=== PATIENT | male | born 1950 | race Caucasian/White ===

== ENCOUNTER 2019-05-21 11:31 | Observation (INO) | payer OTHER ==
[~2019-05-21] VITALS: Ht 177.8 cm; Wt 131.7 kg
[2019-05-21 12:04] VITALS: BP 156/95
[2019-05-21] MEDS ORDERED: HYDROCHLOROTH12.5 M2 PO (15:07)
[2019-05-21] MEDS ORDERED: LEVOTHYROXIN0.175 MG PO (15:07)
[2019-05-21] MEDS ORDERED: MYRBETRIQ50 MG PO (15:08)
[2019-05-21 21:28] VITALS: BP 141/92
[2019-05-21 21:33] VITALS: Ht 177.8 cm; Wt 131.7 kg
[2019-05-21 22:00] VITALS: BP 153/100
[2019-05-21 23:00] VITALS: BP 146/82
[2019-05-22 05:04] VITALS: BP 117/64
[2019-05-22 06:23] LABS: BASOPHIL % 0.6 % (0-2); PLATELET COUNT 222 x10^3mcL (130-400)
[2019-05-22 07:01] LABS: RED CELL DISTRIBUTION WIDTH 14.8 % (11.5-14.5)
[2019-05-22 07:07] LABS: CALCIUM 8.4 mg/dL (8.5-10.1); CARBON DIOXIDE 32.9 mmol/L (21-32); CHLORIDE SERUM 106 mmol/L (98-107); CREATININE SERUM 0.9 mg/dL (0.7-1.3); GFR1 > 60 mL/min; GLUCOSE SERUM 124 mg/dL (74-106); POTASSIUM SERUM 4.8 mmol/L (3.5-5.1); SODIUM SERUM 142 mmol/L (136-145)
[2019-05-22 09:22] VITALS: BP 121/53
[2019-05-22 16:44] VITALS: BP 134/72
== END 2019-05-22 18:09 | disposition home or self-care (01) | DRG 470 ==
LOC: DS 11:31 → EDSTATUS 13:30 → MU 18:29
PROVIDERS: ADMIT Orthopaedic Surgery
PROC: 0SRD0J9 Replacement of Left Knee Joint with Synthetic Substitute, Cemented, Open Approach (ICD-10-PCS; principal; 2019-05-21 13:30)
DX: M17.12 Unilateral primary osteoarthritis, left knee (principal); Z68.41 Body mass index [BMI] 40.0-44.9, adult; I10 Essential (primary) hypertension; E03.9 Hypothyroidism, unspecified; E66.9 Obesity, unspecified; Z96.643 Presence of artificial hip joint, bilateral; Z96.651 Presence of right artificial knee joint
CPT/HCPCS: 97116-GP; C1713; C1776; G0378; J0690; J1170; J1885; J2175; J2270; J2274; J2405; J2704; J3490; J7030; J7120; Q0092

== ENCOUNTER 2019-06-11 19:13 | Inpatient (IN) | payer OTHER ==
[~2019-06-11] VITALS: Ht 175.3 cm; Wt 127.0 kg
[~2019-06-11 19:13] MED LIST: HYDROCHLOROTH12.5 M2 PO; LEVOTHYROXIN0.175 MG PO; MYRBETRIQ50 MG PO
[2019-06-11 19:19] VITALS: Ht 175.3 cm; Wt 127.0 kg
--- NOTE | 2019-06-11 19:24 | NUR ---
PT BIBA TO ED WITH C/C OF ABDOMINAL PAIN BEGINNING APPROX 1 HOUR AGO. PER PT, THE PAIN BEGAN WITH A "SUDDEN ONSET" TO RLQ. PT REPORTS HE WAS WATCHING TV AND FELT SEVERE PAIN TO HIS ABDOMEN, REPORTED FEELING NAUSEOUS ON THE WAY TO THE ED. PT FEELS PAIN WITH PALPATION. DENIES ANY EPISODES OF VOMITTING. PT IS AWAKE, AAOX4, RESP E/U. NO OBVIOUS INJURY OR ABNORMALITY NOTED TO ABDOMEN. NAD NOTED. AWAITING MSE.
--- NOTE | 2019-06-11 20:42 | NUR ---
PT MEDICATED PER MD ORDER. PT VERBALIZED UNDERSTANDING OF MEDICATION PRIOR TO ADMINISTRATION.
[2019-06-11 20:51] LABS: CALCIUM 8.7 mg/dL (8.5-10.1); CARBON DIOXIDE 31.3 mmol/L (21-32); CHLORIDE SERUM 106 mmol/L (98-107); CREATININE SERUM 0.9 mg/dL (0.7-1.3); GFR1 > 60 mL/min; GLUCOSE SERUM 135 mg/dL (74-106); POTASSIUM SERUM 3.9 mmol/L (3.5-5.1); SODIUM SERUM 142 mmol/L (136-145)
[2019-06-11 20:52] LABS: BASOPHIL % 0.6 % (0-2); PLATELET COUNT 328 x10^3mcL (130-400); RED CELL DISTRIBUTION WIDTH 13.6 % (11.5-14.5)
[2019-06-11 20:55] LABS: ALBUMIN 3.5 g/dL (3.4-5.0); ALKALINE PHOSPHATASE 144 U/L (46-116); ALT/SGPT 26 U/L (16-63); AMYLASE 209 U/L (25-115); AST/SGOT 17 U/L (15-37); BILIRUBIN TOTAL 0.3 mg/dL (0.20-1.00); LIPASE 103 IU/L (73-393); TOTAL PROTEIN, SERUM 7.1 g/dL (6.4-8.2)
--- NOTE | 2019-06-11 21:15 | NUR ---
PT REPORTING PAIN IS "COMING BACK" RATES 5/10 AT THIS TIME. MADE AWARE.
--- NOTE | 2019-06-11 21:32 | NUR ---
PT IS AWAKE, AAOX4, RESP E/U, NAD NOTED. DR. HOWELL AT BEDSIDE WITH PT.
--- NOTE | 2019-06-11 22:27 | NUR ---
PT LAYING IN GURNEY, AWAKE, AAOX4, RESP E/U. SPEAKING IN FULL CLEAR SENTENCES, AT BEDSIDE. CALL LIGHT IN REACH.
--- NOTE | 2019-06-12 01:10 | NUR ---
LEFT HAND IV NO LONGER FLUSHING, IV D/C'D. ANGIOCATH INTACT.
--- NOTE | 2019-06-12 01:22 | NUR ---
PT MEDICATED PER ORDER, PT VERBALIZED UNDERSTANDING OF MEDICATION PRIOR TO ADMINISTRATION. PT IS AWAKE AND ALERT, SITTING COMFORTABLY IN GURNEY, RESP E/U, AT BEDSIDE, CALL LIGHT IN REACH. NAD NOTED.
--- NOTE | 2019-06-12 02:12 | NUR ---
CALLED SHARMILA AT LAB, AWAITING BLOOD CULTURE DRAW ON PT TO START ANTIBIOTIC
--- NOTE | 2019-06-12 03:39 | NUR ---
JACKIE EMT AT BEDSIDE ASSISTING PT TO USE URINAL
--- NOTE | 2019-06-12 04:33 | NUR ---
PT TO RADIOLOGY VIA WHEELCHAIR
--- NOTE | 2019-06-12 04:51 | NUR ---
PT BACK FROM CT VIA WHEELCHAIR. PT WHEELED TO RESTROOM. PT AMBULATED FROM RESTROOM TO BED WITH STEADY GAIT AND NO ASSISTANCE. PT REQUESTING TO STAY SITTING AT BEDSIDE AT THIS TIME. CALL LIGHT WITHIN REACH. CM AND [address] PT A&0X4, SPEAKING FULL CLEAR SENTENCES. BREATHING EVEN AND UNLABORED. WILL CONTINUE TO MONITOR
--- NOTE | 2019-06-12 05:27 | NUR ---
PT LAYING ON GURNEY IN NAD. PT SLEEPING BUT EASILY AROUSABLE. BREATHING EVEN AND UNLABORED. LIGHTS TURNED OFF FOR COMFORT. WILL CONTINUE TO MONITOR.
--- NOTE | 2019-06-12 06:29 | NUR ---
HEAD OF BED LOWERED FOR PT COMFORT. PT MEDICATED PER MD ORDERS. PT A&0X4, SPEAKING FULL CLEAR SENTENCES. CM AND [address] BREATHING EVEN AND UNLABORED. WILL CONTINUE TO MONITOR.
--- NOTE | 2019-06-12 07:07 | NUR ---
ATTEMPTED TO CALL REPORT TO DEVIN AT EXT [id number], NO ANSWER.
--- NOTE | 2019-06-12 07:17 | NUR ---
ATTEMPTED TO CALL REPORT TO DEVIN AT EXT [id number], PER DEVIN SHE WASNT AWARE SHE WAS RECEIVING PT AND INFORMED ME THAT SHE WOULD CALL BACK.
--- NOTE | 2019-06-12 07:43 | NUR ---
PT ADMITTED, REPORT GIVEN TO RACHAEL.
--- NOTE | 2019-06-12 08:05 | NUR ---
RECEIVED PT FROM ED VIA WHEELCHAIR. PT AWAKE, ALERT, ORIENTED X4. REPORTS MILD PAIN TO RLQ ABD. DULL, ACHING, RATES 3/10. CONTINUOUS EVEN WHILE RELAXING, WORSE WITH MOVEMENT/ACTIVITY. DENIES N/V AT THIS TIME. DENIES SOB ON ROOM AIR. DENIES CHEST PAIN. MEDSURG. VS STABLE: BP 135/72 (93), HR 72, O2 SAT 100% ON ROOM AIR. RR EVEN/UNLABORED. RR 14. TEMP 97.5F. IV WNL TO RW, PATENT AND FLUSHES WELL. NO REDNESS, NO SWELLING, NO INFILTRATION. PT REPORTS SURGERY ON OCT , LEFT KNEE SURGERY AT [facility] [place], PT HAS LARGE SURGICAL WOUND, SEE MAR FOR PICTURES. NO DRAINAGE. CLOSED WITH SEMITRANSPARENT DRESSING. NO DRAINAGE NOTED. CDI. SURGICAL WOUND MEASURES: LENGTH-18.5CM X WIDTH 0.2CM. NO N/V. NO CHILLS. NO FEVER. CALM/COOPERATIVE. ORIENTED TO SURROUNDINGS. INSTRUCTED TO USE CALL LIGHT TO CALL FOR ASSISTANCE PRN. VERBALIZED UNDERSTANDING. BED IN LOW POSITION. CALL LIGHT WITHIN REACH. WILL CONT. TO MONITOR.
[2019-06-12 09:46] VITALS: BP 135/72
--- NOTE | 2019-06-12 12:29 | NUR ---
PT RESTING IN BED WITH BOTH EYES CLOSED. NO S/S OF ACUTE DISTRESS. NO S/S OF PAIN. NO N/V. MED SURG. NO SOB ON ROOM AIR. RR EVEN/UNLABORED. CHEST EXPANSION SYMMETRICAL. IV WNL TO RW, PATENT AND FLUSHES WELL. IVF FLOWING. BED IN LOW POSITION. CALL LIGHT WITHIN REACH. WILL CONT. TO MONITOR.
--- NOTE | 2019-06-12 14:38 | NUR ---
PT C/O PAIN TO RLQ ABD. RATES 7/10. CONTINUOUS. WORSE WITH MOVEMENT. VS STABLE. O2 SAT 100% ON ROOM AIR. AA/OX4. GIVEN IV PAIN MED, SEE MAR. NO S/S OF ACUTE DISTRESS. NO SOB. NO CHEST PAIN. NO N/V. CALM/COOPERATIVE. IV WNL TO RW, IVF FLOWING. SITE WNL. NPO EXCEPT MEDS. BED IN LOW POSITION. CALL LIGHT WITHIN REACH. WILL CONT. TO MONITOR.
[2019-06-12 17:43] VITALS: BP 140/75
--- NOTE | 2019-06-12 18:43 | NUR ---
PT LAYING IN BED. AA/OX4. REPORTS MILD RLQ ABD. PAIN. DULL ACHING. CONTINUOUS. WORSE WITH PALPATION/MOVEMENT/ACTIVITY. RATES 4/10. REPORTS TOLERABLE AT THIS TIME. DECLINED TO PAIN MEDICATION. NO N/V. NO CHILLS. NO FEVER. VS STABLE. IV WNL TO RW, IVF FLOWING. CALM/COOPERATIVE. NPO. BED IN LOW POSITION. CALL LIGHT WITHIN REACH. WILL ENDORSE TO ONCOMING SHIFT.
[2019-06-12 19:31] VITALS: BP 116/60
--- NOTE | 2019-06-12 20:24 | NUR ---
PATIENT RECEIVED AWAKE, ALERT, ORIENTED X4 IN BED. RESPIRATION EVEN AND UNLABORED, ON ROOM AIR. ONGOING 0.9% NS AT 80 CC/HR INFUSING WELL AT THE RIGHT WRIST. +1 EDEMA TO BLE. LBM 06/11/19. VOIDING FREELY, USES URINAL. LIMITED MOVEMENT TO BLE. SURGICAL INCISION TO LEFT KNEE COVERED WITH SEMI TRANSPARENT DRESSING. WILL CONTINUE TO MONITOR.
--- NOTE | 2019-06-12 20:46 | NUR ---
PATIENT COMPLAINED OF RLQ ABDOMINAL PAIN, PAIN SCALE 5/10. MEDICATED WITH MORPHINE SULFATE 6 MG IVP ORDERED. WILL CONTINUE TO MONITOR.
--- NOTE | 2019-06-13 00:53 | NUR ---
PATIENT COMPLAINED OF HEADACHE, PAIN SCALE 10/10. MEDICATED WITH TYLENOL 650 MG PO ORDERED. WILL CONTINUE TO MONITOR.
[2019-06-13 04:31] VITALS: BP 118/64
--- NOTE | 2019-06-13 04:52 | NUR ---
PATIENT COMPLAINED OF NAUSEA. MEDICATED WITH ZOFRAN 4 MG IVP ORDERED. WILL CONTINUE TO MONITOR.
--- NOTE | 2019-06-13 06:07 | NUR ---
PATIENT RESTING IN BED. RESPIRATION EVEN AND UNLABORED, ON ROOM AIR. RE-INSERTED A NEW IV SITE ON THE LEFT HAND. PLACED BED IN THE LOWEST POSITION.SAFETY OBSERVED. PLACED CALL LIGHT WITHIN REACH AT ALL TIMES.
[2019-06-13 06:11] LABS: BASOPHIL % 0.4 % (0-2); PLATELET COUNT 296 x10^3mcL (130-400); RED CELL DISTRIBUTION WIDTH 13.7 % (11.5-14.5)
--- NOTE | 2019-06-13 06:18 | NUR ---
PATIENT COMPLAINED OF HEADACHE, PAIN SCALE 8/10. MEDICATED WITH TYLENOL 650 MG PO ORDERED. WILL CONTINUE TO MONITOR.
[2019-06-13 06:29] LABS: ALKALINE PHOSPHATASE 126 U/L (46-116); ALT/SGPT 26 U/L (16-63); AST/SGOT 22 U/L (15-37); BILIRUBIN TOTAL 0.58 mg/dL (0.20-1.00); CALCIUM 8.8 mg/dL (8.5-10.1); CHLORIDE SERUM 105 mmol/L (98-107); CREATININE SERUM 0.7 mg/dL (0.7-1.3); GFR1 > 60 mL/min; GLUCOSE SERUM 126 mg/dL (74-106); MAGNESIUM 2.2 mg/dL (1.8-2.4); POTASSIUM SERUM 3.8 mmol/L (3.5-5.1); SODIUM SERUM 141 mmol/L (136-145)
[2019-06-13 06:36] LABS: ALBUMIN 3.3 g/dL (3.4-5.0)
--- NOTE | 2019-06-13 07:39 | NUR ---
RECEIVED PT LYING IN BED A/A. BREATHING EQUAL/ UNLABORED ON RA. IVF RUNNING AT 80 ML/HR. NO REDNESS/ SWELLING TO IV SITE. PT C/O LUGO AND R. ABD PAIN. STATES HE DOES NOT WANT MEDS AT THIS TIME. RELAXATION IMPLEMENTED. BED IN LOW POSITION/ CALL LIGHT IN REACH, SAFETY PRECAUTIONS IN PLACE. WILL CONTINUE TO MONITOR
[2019-06-13 08:12] VITALS: BP 113/68
--- NOTE | 2019-06-13 12:00 | NUR ---
PT LYING IN BED A/A. BREATHING EQUAL/ UNLABORED ON RA. IVF RUNNING AT 80 ML/HR. NO REDNESS/ SWELLING TO IV SITE. NO ACUTE PAIN/ DISTRESS. BED IN LOW POSITION, CALL LIGHT IN REACH, SAFETY PRECAUTIONS IN PLACE. WILL CONTINUE TO MONITOR
[2019-06-13 16:57] VITALS: BP 93/76
--- NOTE | 2019-06-13 18:40 | NUR ---
PT LYING IN BED WITH EYES CLOSED, AROUSABLE TO VOICE. BREATHING EQUAL/ UNLABORED ON RA. IVF RUNNING AT 80 ML/HR. NO REDNESS/ SWELLING TO IV SITE. PT HAS SEMI TRANSPARENT DRESSING TO L. KNEE, CDI. NO ACUTE DISTRESS/ PAIN NOTED AT THIS TIME. BED IN LOW POSITION, CALL LIGHT IN REACH, SAFETY PRECAUTIONS IN PLACE. WILL ENDORSE TO ON COMING NURSE
--- NOTE | 2019-06-13 20:00 | NUR ---
RECEIVED PT IN BED, A/O X4. ABLE TO VERBALIZE NEEDS. RESP. EVEN AND UNLABORED. ON ROOM AIR, NO ACUTE DISTRESS NOTED. DENIES CP OR ANY DISCOMFORT AT THIS TIME. AFEBRILE AND VITAL SIGNS STABLE. IVF, NS AT 80ML/HR, INTACT AND INFUSING VIA LT HAND , SITE CLEAR. S/P LT KNEE SURG. AYLIN/TRANSPARENT DRESSING INTACT, NO REDNESS/BLEEDING NOTED. ABLE TO MOVE EXTS. VOIDING FREELY VIA URINAL. ABD. SOFT, BS ACTIVE, NO N/V AT THIS TIME. ASSISTED WITH HS CARE. CALL LIGHT WITHIN REACH. WILL CONTINUE TO MONITOR.
[2019-06-13 20:39] VITALS: BP 121/65
--- NOTE | 2019-06-13 22:09 | NUR ---
COMPLAINED OF HEADACHE,5/10, MEDICATED WITH TYLENOL PO ORDERED. AMBIEN PO ALSO GIVEN FOR SLEEP . WILL CONTINUE TO MONITOR.
--- NOTE | 2019-06-14 01:42 | NUR ---
EYES CLOSED, APPEARS ASLEEP, EASILY AROUSABLE. RESP. EVEN AND UNLABORED. ON ROOM AIR, NO ACUTE DISTRESS NOTED. IVF INTACT AND INFUSING WELL, SITE CLEAR. CALL LIGHT WITHIN REACH. WILL CONTINUE TO MONITOR.
[2019-06-14 05:12] VITALS: BP 131/83
--- NOTE | 2019-06-14 06:20 | NUR ---
AFEBRILE AND VITAL SIGNS STABLE. RESP. EVEN AND UNLABORED. ON ROOM AIR, NO ACUTE DISTRESS NOTED. DUE MEDS GIVEN ORDERED, DARY. WELL. IVF INTACT AND INFUSING WELL, SITE CLEAR. HAD X2 LG SOFT BM. NO N/V NOTED. VOIDING FREELY. KEPT COMFORTABLE. CALL LIGHT WITHIN REACH. WILL CONTINUE TO MONITOR.
[2019-06-14 06:54] LABS: ALKALINE PHOSPHATASE 123 U/L (46-116); ALT/SGPT 30 U/L (16-63); AST/SGOT 28 U/L (15-37); BILIRUBIN TOTAL 0.7 mg/dL (0.20-1.00); CALCIUM 8.1 mg/dL (8.5-10.1); CARBON DIOXIDE 26.7 mmol/L (21-32); CHLORIDE SERUM 106 mmol/L (98-107); CREATININE SERUM 0.9 mg/dL (0.7-1.3); GFR1 > 60 mL/min; GLUCOSE SERUM 109 mg/dL (74-106); MAGNESIUM 2.3 mg/dL (1.8-2.4); POTASSIUM SERUM 3.2 mmol/L (3.5-5.1); SODIUM SERUM 142 mmol/L (136-145); TOTAL PROTEIN, SERUM 7.2 g/dL (6.4-8.2)
[2019-06-14 06:58] LABS: BASOPHIL % 0.5 % (0-2); PLATELET COUNT 318 x10^3mcL (130-400); RED CELL DISTRIBUTION WIDTH 13.9 % (11.5-14.5)
--- NOTE | 2019-06-14 07:05 | NUR ---
RECEIVED BEDSIDE REPORT FROM SP[facility]TER NURSE AT THIS TIME. PATIENT RESTING COMFORTABLY IN BED. BREATHING EVEN AND UNLABORED. NO RESPIRATORY DISTRESS OR DISCOMFORT NOTED. PATIENT DENIES CHEST PAIN/PRESSURE AT THIS TIME. IV PATENT AND INTACT. ALL QUESTIONS AND CONCERNS ADDRESSED. ALL NEEDS ATTENDED TO. WILL CONTINUE TO MONITOR
[2019-06-14 08:37] VITALS: BP 135/71
[2019-06-14 09:25] LABS: ALBUMIN 3.7 g/dL (3.4-5.0)
--- NOTE | 2019-06-14 10:00 | NUR ---
MEDICATION ADMINISTERED. [place] HELD DUE TO PATIENT REFUSAL AND STATING HE DOES NOT NEED. ALL NEEDS ATTENDED TO. WILL CONTINUE TO MONITOR
--- NOTE | 2019-06-14 10:38 | NUR ---
PATIENT C/O HEADACHE AT THIS TIME. PATIENT MEDICATED WITH TYLENOL PO PRN. PATIENT TOLERATED WELL. NO APPARENT ADVERSE EFFECTS NOTED. ALL NEEDS ATTENDED TO. WILL CONTINUE TO MONITOR
[2019-06-14] MEDS ORDERED: FLAGYL500 MG PO (10:54)
[2019-06-14] MEDS ORDERED: CIPRO500 MG PO (10:55)
--- NOTE | 2019-06-14 12:40 | NUR ---
PATIENT SITTING UP IN BED EATING LUNCH. PATIENT TOLERATING DIET FAIRLY. ALL NEEDS ATTENDED TO. WILL CONTINUE TO MONITOR
[2019-06-14 14:25] VITALS: BP 135/71
--- NOTE | 2019-06-14 16:43 | NUR ---
PATIENT C/O HEADACHE AT THIS TIME. PATIENT MEDICATED WITH TYLENOL PO PRN AT THIS TIME. PATIENT TOLERATED WELL. NO APPARENT ADVERSE EFFECTS NOTED. ALL NEEDS ATTENDED TO. WILL CONTINUE TO MONITOR
[2019-06-14 16:46] VITALS: BP 117/56
--- NOTE | 2019-06-14 18:00 | NUR ---
PATIENT STABLE TO BE DSICHARGED PER KAUSHAL ALARCON, AND DR ANTUNEZ. DISCHARGE INSTRUCTIONS GIVEN WELL EDUCATION. INSTRUCTED PATIENT ABOUT FOLLOW UP APPOINTMENT. PATIENT VERBALIZES UNDERSTANDING. IV REMOVED WITH CATH INTACT. ID BANDS REMOVED. ALL BELONGINGS WITH PATIENT. ALL QUESTIONS AND CONCERNS ADDRESSED. ALL NEEDS ATTENDED TO. WILL CONTINUE TO MONITOR
--- NOTE | 2019-06-14 18:20 | NUR ---
FOUND PATIENT DISCHARGE PAPERS AND PRESCRIPTION AT BEDSIDE AT THIS TIME. TRIED TO REACH PATIENT AND AT THIS TIME. NO ANSWER. LEFT MESSAGE REGARDING PICKING UP PACKET. WILL LEAVE PACKET AT CHARGE NURSE STATION.
== END 2019-06-14 18:08 | disposition home or self-care (01) | DRG 394 ==
LOC: ED 19:13 → MU 06-12 06:29
PROVIDERS: Emergency Medicine; ADMIT Internal Medicine Pulmonary Disease
DX: K35.80 Unspecified acute appendicitis (principal); N13.30 Unspecified hydronephrosis; E03.9 Hypothyroidism, unspecified; I10 Essential (primary) hypertension; E66.9 Obesity, unspecified; Z68.39 Body mass index [BMI] 39.0-39.9, adult; Z96.652 Presence of left artificial knee joint
CPT/HCPCS: G0378; J1644; J2270; J2405; J2543; J7030; Q0092; Q9966; Q9967